=== PATIENT | male | born 1945 | race Caucasian/White ===

== ENCOUNTER 2024-09-27 19:37 | Emergency (ER) | payer OTHER, MEDICARE, SELFPAY ==
[2024-09-27 19:40] VITALS: BP 120/56
[2024-09-27 22:32] VITALS: BMI 26.7
[2024-09-27 22:42] VITALS: BP 155/54
[2024-09-27 23:01] VITALS: BP 168/53
--- NOTE | 2024-09-27 23:02 | ED.MUSCINJ ---
HPI-Injury
<Cindy Salvador NP - Last Filed: 09/29/24 16:39>
General
Chief Complaint: Fall
Source: patient
Exam Limitations: none
Time Seen by Provider: 09/27/24 20:02
Nursing documentation reviewed up to this point in time: agreed with
History of Present Illness-Injury
Is this injury a work related problem?: No
Is pt an associate of [facility]?: No
Initial Injury comments:
Patient states he tripped and fell in his driveway. Denies hitting his head. No LOC. Complains of pain to right clavicle, right hip. Brought to ED by family for eval.
Past History
<Cindy Salvador CAKE MIXER - Last Filed: 09/29/24 16:39>
Past History
ED Past Medical History: GERD and HTN
Review of Systems
<Cindy Salvador CAKE MIXER - Last Filed: 09/29/24 16:39>
Review of Systems
Allergies reviewed?: Yes
All Other Systems: ROS reviewed and negative except as documented in HPI and ROS
Constitutional: Reports no symptoms
EENT: Reports no symptoms
Respiratory: Reports no symptoms
Cardiac: Reports no symptoms
ABD/GI: Reports no symptoms
: Reports no symptoms
Musculoskeletal: Reports joint pain (right clavicle, right hip)
Skin: Reports other (abrasion right elbow)
Neurological: Reports no symptoms
Psychiatric: Reports no symptoms
Musculoskeletal Injury Exam
<Cindy Salvador NP - Last Filed: 09/29/24 16:39>
Musculoskeletal Injury Exam
right clavicle:
Pain with Movement?: Moderate
Tender to palpation?: Moderate
Soft tissue swelling?: Mild
External deformity and angulation?: None
Joint effusion?: None
Contusion?: Moderate
Hematoma-local bleeding into tissue?: Moderate
Strain- Sprain- Tear (Connective tissue injury)?: None
Crepitus with movement?: No
Joint instability?: No
Malalignment/deformity?: No
Range of motion: Limited
Distal skin color and temperature: normal-warm & good color
Capillary Refill: normal
Normal distal neurovascular exam?: Yes
Left Hip:
Pain with Movement?: Mild
Tender to palpation?: Moderate
Soft tissue swelling?: None
External deformity and angulation?: None
Joint effusion?: None
Contusion?: Moderate
Hematoma-local bleeding into tissue?: None
Strain- Sprain- Tear (Connective tissue injury)?: Moderate
Crepitus with movement?: No
Joint instability?: No
Malalignment/deformity?: No
Range of motion: Full
Distal skin color and temperature: normal-warm & good color
Capillary Refill: normal
Normal distal neurovascular exam?: Yes
Phy Exam
<Cindy Salvador NP - Last Filed: 09/29/24 16:39>
General Physical Exam
General Presentation: mild distress
General age: appears stated age
General Skin: warm and dry
General Habitus: normal
General Mental: alert
Cardiovascular Exam
Cardiovascular Exam: regular rate/rhythm
Pulmonary Exam
Pulmonary Exam: lungs clear, no respiratory distress and chest non tender
Gastrointestinal Exam
Gastrointestinal Exam: normal bowel sounds, non tender, soft and non distended
Neurological Exam
Neurological Exam: alert, oriented x3, CN II-XII intact, no motor deficits, no sensory deficits and speech normal
Musculoskeletal Exam
Musculoskeletal Exam: neuro vasc intact and other (no neck or back pain. Reports pain to right medial clavicle. No pain at right shoulder. Medial clavicle fx identified on Cervical CT)
Skin Exam
Skin Exam: normal color, warm/dry and no rash
Psychiatric Exam
Psychiatric Exam: normal mood/affect
Injury Course
<Cindy Salvador NP - Last Filed: 09/29/24 16:39>
Orders/Labs/Results
Orders:
Orders
09/27/24 19:53
CR Elbow - Right Min 3 Views Urgent
Comment:
Reason For Exam: injury from fall
CR Shoulder - Right Min 2 View Urgent
Comment:
Reason For Exam: injury from fall
Hip, Right 2-3 Views [CR Hip - RT w/wo Pel 2-3 Vw*] Urgent
Comment:
Reason For Exam: injury from fall
Include a pelvis x-ray?: No
09/27/24 19:58
CT Head W/o Iv Contrast Urgent
Reason For Exam: head injury
Cervical Spine wo Contrast CT [CT Cervical Spine W/o Iv Contr] Urgent
Comment:
Reason For Exam: head injury
09/27/24 21:57
Clavicle Complete, Right CR [CR Clavicle - Right Complete] Urgent
Comment:
Reason For Exam: fall
09/27/24 22:[address] [CT Pelvis W/o Iv Contrast] Urgent
Comment:
Reason For Exam: fall,pain
09/27/24 23:18
Complete Blood Count/With Diff Urgent
Comprehensive Metabolic Panel Urgent
09/27/24 23:59
Urinalysis Reflex To Culture Urgent
Date Specimen was Collected: 09/27/24
Time Specimen was Collected: 23:57
09/28/24 00:18
HYDROmorphone [Dilaudid] 0.5 mg .ROUTE .STK-MED ONE
Ondansetron Injectable [Zofran] 4 mg .ROUTE .STK-MED ONE
09/28/24 00:20
Ondansetron Injectable [Zofran] 4 mg IV NOW STA
09/28/24 00:21
HYDROmorphone [Dilaudid] 0.5 mg IV NOW STA
Abnormal Lab Results
09/27/24
23:18
WBC 11.6 H 10^3/uL
(4.8-10.8)
Hgb 11.0 L g/dL
(13.0-18.0)
Hct 34.9 L %
(39.0-52.0)
MCV 73.8 L fL
(80.0-94.0)
MCH 23.3 L pg
(27.0-31.0)
MCHC 31.5 L g/dL
(33.0-37.0)
RDW 15.9 H %
(11.5-14.5)
Abs Immat Gran (auto) 0.1 H 10^3/uL
(0-0.05)
Absolute Neuts (auto) 9.2 H 10^3/uL
(1.4-6.5)
Immature Gran % 0.9 H %
(0-0.5)
Neutrophils % 79.1 H %
(42.2-75.2)
Lymphocytes % 13.3 L %
(20.5-51.1)
Glucose 100 H mg/dl
(70-99)
09/27/24 23:18
09/27/24 23:18
<Priya Moyer MD - Last Filed: 09/27/24 23:08>
Orders/Labs/Results
Orders:
Orders
09/27/24 19:53
CR Elbow - Right Min 3 Views Urgent
Comment:
Reason For Exam: injury from fall
CR Shoulder - Right Min 2 View Urgent
Comment:
Reason For Exam: injury from fall
Hip, Right 2-3 Views [CR Hip - RT w/wo Pel 2-3 Vw*] Urgent
Comment:
Reason For Exam: injury from fall
Include a pelvis x-ray?: No
09/27/24 19:58
CT Head W/o Iv Contrast Urgent
Reason For Exam: head injury
Cervical Spine wo Contrast CT [CT Cervical Spine W/o Iv Contr] Urgent
Comment:
Reason For Exam: head injury
09/27/24 21:57
Clavicle Complete, Right CR [CR Clavicle - Right Complete] Urgent
Comment:
Reason For Exam: fall
09/27/24 22:[address] [CT Pelvis W/o Iv Contrast] Urgent
Comment:
Reason For Exam: fall,pain
09/27/24 23:18
Complete Blood Count/With Diff Urgent
Comprehensive Metabolic Panel Urgent
09/27/24 23:59
Urinalysis Reflex To Culture Urgent
Date Specimen was Collected: 09/27/24
Time Specimen was Collected: 23:57
09/28/24 00:18
HYDROmorphone [Dilaudid] 0.5 mg .ROUTE .STK-MED ONE
Ondansetron Injectable [Zofran] 4 mg .ROUTE .STK-MED ONE
09/28/24 00:20
Ondansetron Injectable [Zofran] 4 mg IV NOW STA
09/28/24 00:21
HYDROmorphone [Dilaudid] 0.5 mg IV NOW STA
Abnormal Lab Results
09/27/24
23:18
WBC 11.6 H 10^3/uL
(4.8-10.8)
Hgb 11.0 L g/dL
(13.0-18.0)
Hct 34.9 L %
(39.0-52.0)
MCV 73.8 L fL
(80.0-94.0)
MCH 23.3 L pg
(27.0-31.0)
MCHC 31.5 L g/dL
(33.0-37.0)
RDW 15.9 H %
(11.5-14.5)
Abs Immat Gran (auto) 0.1 H 10^3/uL
(0-0.05)
Absolute Neuts (auto) 9.2 H 10^3/uL
(1.4-6.5)
Immature Gran % 0.9 H %
(0-0.5)
Neutrophils % 79.1 H %
(42.2-75.2)
Lymphocytes % 13.3 L %
(20.5-51.1)
Glucose 100 H mg/dl
(70-99)
09/27/24 23:18
09/27/24 23:18
<Cindy Salvador NP - Last Filed: 09/29/24 16:39>
*Radiology
Radiology exam reviewed: radiology read reviewed
*Pulse Oximetry
Patient hypoxic: no
*Critical Care Note
Total Time (30-74mins, 75-104mins- exclusive of procedures): Not Applicable
<Cindy Salvador NP - Last Filed: 09/29/24 16:39>
Update Note
Update Note:
Patient to ED after fall from standing position in his driveway. He denies hitting his head. Complains of pain to his right medial clavicle and right hip. He has an abrasion to his right shoulder. Head and Cervical CT ordered in triage. No
acute findings on head CT. Cervical CT reveal age indeterminate compression fx C3,4,7. He had no neck pain. Shoulder xray also ordered in triage. No shoulder pain on exam. He does have right medial clavical pain and swelling. Medial clavicle fx
was identified on Cervical CT. Left hip xray concerning for pelvic fx. Sent for pelvis CT which confirms inferior an superior ramus fx and right acetabular fx. Also concern for possible Bladder injury. Urine without hai blood. Due to
numberous pelvic fx and bladder concern on CT, he will be transferred to trauma facility. Family requesting [facility]. I spoke with trauma there and he has been accepted for transfer. Resting comfortably at present.
ED Attending Note
<Cindy Salvador NP - Last Filed: 09/29/24 16:39>
-
Portions of this chart may have been created with voice recognition software.� Occasional wrong word or��sound alike� substitutions may have occurred due to the inherent limitations of voice recognition software.
<Priya Moyer MD - Last Filed: 09/27/24 23:08>
ED Attending Note
Patient seen and examined by attending physician: Yes
I performed the substantive portion of visit, reviewed & personally made and approve the management plan that is documented in note by myself or DAKSHA.: Yes
ED Attending Note:
patient is fully awake and alert. He has no headache. no C spine tenderness on exam. strong pulses in lower and upper extremities
Discharge Plan
Departure
Patient Disposition: Acute Care Hospital
Date of Disposition: 09/27/24
Time of Disposition: 23:29
Patient with high blood pressure during this ER visit?: Yes
Condition: Fair
Covid-19: Not Applicable
Discharge Problem:
Pelvic fracture
Prescriptions:
No Action
atorvastatin 20 mg Tablet
20 mg PO DAILY
galantamine 8 mg Tablet
8 mg PO BID
gabapentin 300 mg Tablet
300 mg PO BID
aspirin 81 mg Capsule
81 mg PO DAILY
CoQ-10
200 mg PO DAILY
Oyster Shell Calcium
500 mg PO DAILY
Vitamin D3
2,000 units PO DAILY
enalapril maleate
10 mg PO DAILY
pantoprazole
40 mg PO DAILY
Referrals:
Prasanth Stanford MD [Family Provider, [facility]]
Hospital Transfer
Other hospital: [facility]
I certify that the patient requires transfer: Yes
Discussed case with accepting physician: SERAFIN
Reason for transfer: higher level of care
Interventions
Interventions:
*Risk Screen - Suicide Last Done: 09/27/24 19:40
*General Assessment Last Done: 09/27/24 19:40
*Neglect/Abuse Screening Last Done: 09/27/24 19:50
*ED- Fall Risk Assessment Last Done: 09/27/24 19:48
*ED COVID-19 Vaccine History Last Done: 09/27/24 19:48
*Nursing Disposition Last Done: 09/28/24 00:59
ED-Musculoskeletal Assessment Last Done: 09/27/24 22:59
ED- Neurological Assessment Last Done: 09/27/24 22:44
ED-Skin Assessment Last Done: 09/27/24 22:44
Discharge Date and Time
Discharge Date/Time: 09/28/24 01:01
Print Language: ROMANSH
[2024-09-27 23:22] VITALS: BP 168/53
[2024-09-27 23:28] LABS: % Basophils 0.3 % (0-2); % Eosinophils 2.1 % (0-6); % Immature Granulocytes 0.9 % (0-0.5); % Lymphocytes 13.3 % (20.5-51.1); % Monocytes 4.3 % (1.7-9.3); % Neutrophils 79.1 % (42.2-75.2); Absolute Eosinophils 0.2 10^3/uL (0-0.7); Absolute Immature Granulocytes 0.1 10^3/uL (0-0.05); Absolute Lymphocytes 1.6 10^3/uL (1.2-3.4); Absolute Monocytes 0.5 10^3/uL (0.1-0.6); Absolute Neutrophils 9.2 10^3/uL (1.4-6.5); Hematocrit 34.9 % (39.0-52.0); Mean Corp Hgb Conc. 31.5 g/dL (33.0-37.0); Mean Corpuscular Hgb 23.3 pg (27.0-31.0); Mean Corpuscular Volume 73.8 fL (80.0-94.0); Mean Platelet Volume 9.1 fL (7.4-10.4); Nucleated Red Blood Cells % 0 % (-); Platelet Count 301 10^3/uL (130-400); Red Blood Cell Count 4.73 10^6/uL (4.70-6.10); Red Cell Dist. Width 15.9 % (11.5-14.5); White Blood Cell Count 11.6 10^3/uL (4.8-10.8)
[2024-09-27 23:41] LABS: ALT (SGPT) 12 U/L (0-50); AST (SGOT) 22 U/L (17-59); Alkaline Phosphatase 63 U/L (38-126); Blood Urea Nitrogen 17 mg/dl (9-20); Calcium 9.7 mg/dl (8.4-10.2); Carbon Dioxide 25 mmol/L (22-30); Chloride 107 mmol/L (98-107); Estimated Creatinine Clearance 48 ml/min; Glucose 100 mg/dl (70-99); Potassium 4.5 mmol/L (3.5-5.1); Sodium 139 mmol/L (135-145); Total Bilirubin 0.9 mg/dl (0.2-1.3); Total Protein 6.7 g/dl (6.3-8.2); eGFR 55.53
[2024-09-28 00:08] LABS: Urine Bilirubin Negative (Negative); Urine Character Clear (Clear); Urine Color Yellow; Urine Glucose Negative (Negative); Urine Ketone Negative (Negative); Urine Leukocyte Negative (Negative); Urine Nitrite Negative (Negative); Urine Occult Blood Negative (Negative); Urine Specific Gravity 1.025 (<1.030); Urine Urobilinogen Negative (Neg - 1+)
[2024-09-28 00:10] LABS: Urine Albumin Trace (Neg - Trace)
[2024-09-28] MEDS: ZOFRAN 4 MG IV (00:21)
[2024-09-28] MEDS: DILAUDID 0.5 MG IV (00:21)
[2024-09-28 00:45] VITALS: BP 152/49
== END 2024-09-28 01:01 | disposition short-term general hospital (02) ==
LOC: EMR 19:37
PROVIDERS: Nurse Practitioner; EMERGENCY PHYSICIAN Emergency Medicine; FAMILY PHYSICIAN Family Medicine
DX: S32.9XXA Fracture of unspecified parts of lumbosacral spine and pelvis, initial encounter for closed fracture (principal); S70.02XA Contusion of left hip, initial encounter; S40.011A Contusion of right shoulder, initial encounter; S50.311A Abrasion of right elbow, initial encounter; W01.0XXA Fall on same level from slipping, tripping and stumbling without subsequent striking against object, initial encounter; Y92.008 Other place in unspecified non-institutional (private) residence as the place of occurrence of the external cause; I10 Essential (primary) hypertension; K21.9 Gastro-esophageal reflux disease without esophagitis; F03.90 Unspecified dementia, unspecified severity, without behavioral disturbance, psychotic disturbance, mood disturbance, and anxiety; J44.9 Chronic obstructive pulmonary disease, unspecified; Z79.82 Long term (current) use of aspirin
CPT/HCPCS: 99285; 96374; 96375; 70450; 72125; 72192; 73000; 73030; 73080; 73502; 80053; 81003; 85025

== ENCOUNTER → 2024-10-03 10:51 | Outpatient (REF) | payer OTHER, SELFPAY ==
[2024-10-03 11:41] LABS: % Basophils 0.7 % (0-2); % Eosinophils 5.3 % (0-6); % Immature Granulocytes 0.5 % (0-0.5); % Lymphocytes 18.7 % (20.5-51.1); % Monocytes 8.5 % (1.7-9.3); % Neutrophils 66.3 % (42.2-75.2); Absolute Basophils 0.1 10^3/uL (0-0.2); Absolute Eosinophils 0.4 10^3/uL (0-0.7); Absolute Lymphocytes 1.6 10^3/uL (1.2-3.4); Absolute Monocytes 0.7 10^3/uL (0.1-0.6); Absolute Neutrophils 5.5 10^3/uL (1.4-6.5); Hemoglobin 9.4 g/dL (13.0-18.0); Mean Corp Hgb Conc. 31.3 g/dL (33.0-37.0); Mean Corpuscular Hgb 23.4 pg (27.0-31.0); Mean Corpuscular Volume 74.6 fL (80.0-94.0); Mean Platelet Volume 9.6 fL (7.4-10.4); Nucleated Red Blood Cells % 0 % (-); Platelet Count 327 10^3/uL (130-400); Red Blood Cell Count 4.02 10^6/uL (4.70-6.10); Red Cell Dist. Width 16.8 % (11.5-14.5); White Blood Cell Count 8.3 10^3/uL (4.8-10.8)
[2024-10-03 11:44] LABS: Blood Urea Nitrogen 18 mg/dl (9-20); Calcium 9.2 mg/dl (8.4-10.2); Carbon Dioxide 28 mmol/L (22-30); Chloride 109 mmol/L (98-107); Glucose 89 mg/dl (70-99); Potassium 4.6 mmol/L (3.5-5.1); Sodium 140 mmol/L (135-145); eGFR > 60.00
== END ==
LOC: CLAB 10:51
PROVIDERS: ATTENDING PHYSICIAN Family Medicine
DX: N32.0 Bladder-neck obstruction (principal); S42.021D Displaced fracture of shaft of right clavicle, subsequent encounter for fracture with routine healing; S22.42XD Multiple fractures of ribs, left side, subsequent encounter for fracture with routine healing; S32.9XXD Fracture of unspecified parts of lumbosacral spine and pelvis, subsequent encounter for fracture with routine healing; K57.30 Diverticulosis of large intestine without perforation or abscess without bleeding; I25.10 Atherosclerotic heart disease of native coronary artery without angina pectoris; E78.2 Mixed hyperlipidemia; I10 Essential (primary) hypertension
CPT/HCPCS: 36415; 80048; 85025

== ENCOUNTER 2024-12-16 06:17 | Day surgery (SDC) | payer OTHER, SELFPAY | END 2024-12-16 15:07 | disposition home or self-care (01) | LOC: GI 06:17 | PROVIDERS: ATTENDING PHYSICIAN Surgery | DX: Z12.11 Encounter for screening for malignant neoplasm of colon (principal); K57.30 Diverticulosis of large intestine without perforation or abscess without bleeding; K56.690 Other partial intestinal obstruction; D49.0 Neoplasm of unspecified behavior of digestive system; C18.0 Malignant neoplasm of cecum; D12.5 Benign neoplasm of sigmoid colon; D12.3 Benign neoplasm of transverse colon; D12.2 Benign neoplasm of ascending colon | CPT/HCPCS: 45385; 45381; 45380; 88305; 88342 ==

== ENCOUNTER → 2024-12-24 12:28 | Outpatient (REF) | payer OTHER, SELFPAY | LOC: RAD 12:28 | PROVIDERS: ATTENDING PHYSICIAN Surgery; FAMILY PHYSICIAN Family Medicine | DX: K63.89 Other specified diseases of intestine (principal) | CPT/HCPCS: 71260; 74177; Q9967 ==

== ENCOUNTER 2024-12-25 16:31 | Emergency (ER) | payer OTHER, SELFPAY ==
[2024-12-25 16:42] VITALS: BP 91/45
[2024-12-25 17:10] LABS: Hematocrit 34.1 % (39.0-52.0); Hemoglobin 10.6 g/dL (13.0-18.0); Mean Corp Hgb Conc. 31.1 g/dL (33.0-37.0); Mean Corpuscular Volume 71.8 fL (80.0-94.0); Nucleated Red Blood Cells % 0 % (-); Platelet Count 335 10^3/uL (130-400); Red Cell Dist. Width 17.7 % (11.5-14.5)
[2024-12-25 17:16] LABS: ALT (SGPT) 11 U/L (0-50); AST (SGOT) 18 U/L (17-59); Albumin 3.7 g/dl (3.5-5.0); Alkaline Phosphatase 76 U/L (38-126); Blood Urea Nitrogen 12 mg/dl (9-20); Calcium 9.7 mg/dl (8.4-10.2); Carbon Dioxide 25 mmol/L (22-30); Chloride 105 mmol/L (98-107); Glucose 130 mg/dl (70-99); Potassium 4.9 mmol/L (3.5-5.1); Sodium 135 mmol/L (135-145); Total Protein 6.1 g/dl (6.3-8.2); eGFR 43.29
[2024-12-25 18:27] VITALS: BP 129/76
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
[2024-12-25 19:25] VITALS: BP 131/53
[2024-12-25 20:00] VITALS: BP 137/61
[2024-12-25 20:09] LABS: Urine Character Clear (Clear)
[2024-12-25 20:33] LABS: Urine Red Blood Cell 0-2 /HPF (0-2); Urine Squamous Cell 0-2 /LPF (Few)
== END 2024-12-25 20:42 | disposition home or self-care (01) ==
LOC: EMR 16:31
PROVIDERS: Emergency Medicine; EMERGENCY PHYSICIAN Emergency Medicine; FAMILY PHYSICIAN Family Medicine
DX: Z04.3 Encounter for examination and observation following other accident (principal); W17.2XXA Fall into hole, initial encounter; F03.90 Unspecified dementia, unspecified severity, without behavioral disturbance, psychotic disturbance, mood disturbance, and anxiety; I10 Essential (primary) hypertension; J44.9 Chronic obstructive pulmonary disease, unspecified; K21.9 Gastro-esophageal reflux disease without esophagitis
CPT/HCPCS: 99284; 70450; 71046; 72125; 72170; 80053; 81003; 81015; 85025; 87086

== ENCOUNTER → 2025-01-20 17:33 | Outpatient (REF) | payer OTHER, SELFPAY | LOC: MRI 17:33 | PROVIDERS: ATTENDING PHYSICIAN Surgery; FAMILY PHYSICIAN Family Medicine | DX: C18.0 Malignant neoplasm of cecum (principal); R93.2 Abnormal findings on diagnostic imaging of liver and biliary tract | CPT/HCPCS: 74183; A9575 ==

== ENCOUNTER 2025-02-04 06:01 | Inpatient (IN) | payer OTHER, SELFPAY ==
[2025-01-26 11:53] LABS: Hematocrit 35.2 % (39.0-52.0); Hemoglobin 11.0 g/dL (13.0-18.0); Mean Corp Hgb Conc. 31.3 g/dL (33.0-37.0); Mean Corpuscular Volume 71.5 fL (80.0-94.0); Platelet Count 362 10^3/uL (130-400); Red Cell Dist. Width 18.0 % (11.5-14.5)
[2025-01-26 12:03] LABS: INR 1.07; PT 14.2 Sec (11.4-14.6)
[2025-01-26 12:04] LABS: APTT 32.1 Sec (23.4-35.0)
[2025-01-26 12:11] LABS: Glycohemoglobin (HgbA1c) 5.5 % (4.0-5.6)
[2025-01-26 13:48] LABS: ALT (SGPT) < 10 U/L (0-50); AST (SGOT) 17 U/L (17-59); Albumin 3.8 g/dl (3.5-5.0); Alkaline Phosphatase 80 U/L (38-126); Blood Urea Nitrogen 13 mg/dl (9-20); Calcium 9.2 mg/dl (8.4-10.2); Carbon Dioxide 29 mmol/L (22-30); Chloride 104 mmol/L (98-107); Glucose 79 mg/dl (70-99); Potassium 4.7 mmol/L (3.5-5.1); Sodium 137 mmol/L (135-145); Total Protein 6.3 g/dl (6.3-8.2); eGFR 55.53
[2025-01-26 13:49] VITALS: BMI 23.0
[2025-01-26 14:17] LABS: CEA 1.26 ng/ml
[2025-02-04] VITALS (17 sets, daily range): BP systolic 119–192; BP diastolic 51–85; BMI 23.0
[2025-02-04] MEDS: HEPARIN 5000 UNITS SC (07:03)
[2025-02-04] MEDS: NORMOSOL-R/PLASMALYTE-A 1000 IV ×2 (07:03→14:46)
--- NOTE | 2025-02-04 11:55 | W.OR.COLCA ---
Colon Cancer Post Op Note
Immediate Post Op
Primary Surgeon: Teja Patel MD
Assistants: JOJO Alaniz, Marti Cabrera, MAGGIE, PENS AND PENCILS DIPPER, NIKKIE Copeland
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
Post-op Diagnosis: Cecal cancer, with liver metastasis
Procedure Performed: Robotic right colectomy with intracorporeal isoperistaltic anastomosis, wedge resection of liver lesion with frozen section
Anesthesia Type: GET
Specimen / Cultures: Liver lesion with metastatic adenocarcinoma on frozen section
Right colon
Portion of omentum
Estimated Blood Loss: 30cc
Complications: None
Operative Findings: Bulky tumor of the cecum, enlarged appendix and adherent terminal ileum
1 cm lesion in the right hepatic lobe
Patient's family updated in the waiting room
Colon Resection
Colon Resection
Operation performed with curative intent: No
Tumor Location: Cecum
Right Hemicolectomy: Ileocolic and Right Colic
Other: Wedge resection of right hepatic liver lesion
--- NOTE | 2025-02-04 16:00 | PTCARENOTE ---
Pt arrived to [facility] s/p Robotic Right colectomy. 5 lap sites GEODUCK DIVER with glue. Craig with yellow output to be removed POD #2. Knee high scds/teds on pt. Bed alarm activated. Admission questions answered. Bed locked and lowest position. Care ongoing.
[2025-02-04] MEDS: TYLENOL 650 MG PO ×2 (16:58→19:45)
[2025-02-04] MEDS: RAZADYNE 8 MG PO (17:04)
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
[2025-02-04] MEDS: NEURONTIN 300 MG PO (19:45)
[2025-02-04] MEDS: APRESOLINE 5 MG IV (19:48)
[2025-02-05] MEDS: TYLENOL PO (00:35)
[2025-02-05 03:08] VITALS: BP 158/61
[2025-02-05] MEDS: TYLENOL 650 MG PO ×6 (03:36→23:18)
[2025-02-05] MEDS: NORMOSOL-R/PLASMALYTE-A 1000 IV ×2 (03:36→18:17)
[2025-02-05 06:00] VITALS: BMI 22.0
[2025-02-05 07:45] VITALS: BP 160/78
[2025-02-05 07:48] LABS: Blood Urea Nitrogen 15 mg/dl (9-20); Calcium 8.7 mg/dl (8.4-10.2); Carbon Dioxide 24 mmol/L (22-30); Chloride 108 mmol/L (98-107); Estimated Creatinine Clearance 50 ml/min; Glucose 98 mg/dl (70-99); Potassium 4.2 mmol/L (3.5-5.1); Sodium 138 mmol/L (135-145); eGFR > 60.00
[2025-02-05 08:14] LABS: Hematocrit 30.5 % (39.0-52.0); Hemoglobin 9.7 g/dL (13.0-18.0); Mean Corp Hgb Conc. 31.8 g/dL (33.0-37.0); Mean Corpuscular Volume 71.3 fL (80.0-94.0); Nucleated Red Blood Cells % 0 % (-); Platelet Count 279 10^3/uL (130-400); Red Cell Dist. Width 19.1 % (11.5-14.5)
[2025-02-05] MEDS: NEURONTIN 300 MG PO ×2 (08:40→20:44)
[2025-02-05] MEDS: ASPIR LOW (ENTERIC COATED) 81 MG PO (08:40)
[2025-02-05] MEDS: RAZADYNE 8 MG PO ×2 (08:42→16:16)
[2025-02-05] MEDS: VASOTEC 10 MG PO (08:42)
[2025-02-05] MEDS: LIPITOR 20 MG PO (08:42)
--- NOTE | 2025-02-05 10:36 | W.PN.CRS1 ---
Today's Communication / Plan
-
fulls if passes flatus later
lovenox
OOB
await path
Assessment/Plan
-
POD#1 Robotic right colectomy with intracorporeal isoperistaltic anastomosis, wedge resection of liver lesion with frozen section
WBC: 11.6, RBC 9.7 (11.0)
-Continue clears. Okay to advance to fulls when has flatus.
-OOB with PT/OT
-OR pathology pending
-Lovenox to start for dvt prophylaxis. TEDS/SCDS in place.
-No eliquis upon discharge (cancer) due to fall risk.
-Pain control: tylenol/toradol standing, Diluadid PRN.
-D/C masterson
-DC IVFs when tolerating po
-Appreciate hospitalist
Subjective Data
Procedure
02/04/2025- Robotic right colectomy with intracorporeal isoperistaltic anastomosis, wedge resection of liver lesion with frozen section
Subjective Data
Date of Service: February 05, 2025
Patient states he has no nausea or vomiting. He had some pain last night. No flatus yet. He is hungry.
Objective Data
-
Vital Signs
Temp Pulse Resp BP Pulse Ox
97.9 F 68 18 145/54 95
02/05/25 07:45 02/05/25 08:42 02/05/25 07:45 02/05/25 08:42 02/05/25 07:45
Intake & Output
02/04/25 02/05/25 02/06/25
06:59 06:59 06:59
Intake Total 2620 / 2620 120 / 120
Output Total 920 / 920
Balance 1700 / 1700 120 / 120
Intake:
Oral fluids 1200 / 1200 120 / 120
IV fluids (Total) 1420 / 1420
Normosal 300 / 300
Output:
Urine, [place] 820 / 820
Urine, Voided 100 / 100
Lab Results
02/05/25 05:58
02/05/25 05:58
Physical Exam
-
General: No Acute Distress and AOx3
Abdomen: Soft, Non Distended and Non Tender
Skin: Warm and Dry
Incision: Clear, Dry, Intact
[2025-02-05 11:10] VITALS: BP 141/65
[2025-02-05 12:12] VITALS: BP 145/61
[2025-02-05 15:20] VITALS: BP 117/58
--- NOTE | 2025-02-05 16:20 | CM ---
Met with patient at bedside; he gave permission to speak with son, Cody, via phone
Pharmacy verified: [facility] @ [address]
Patient lives with son and [id number] in an in-law suite attached to his son's home; he enters via the backdoor; 1 step to enter the suite and another to enter his bathroom; bath has shower stall
PLOF: independent w/ personal care, family provides assistance if needed; son reported he occasionally ambulates w/ a cane;
SNF stay @ [facility] 2023; Home Health services with [facility] 2024
PT recommends home health at disposition; Son is agreeable; agency options offered; preference is [facility]; referral sent via [facility] [employer]
Plan: Discharge to home when medically stable with home health services
--- NOTE | 2025-02-05 16:36 | W.PN.HOSP.TC ---
Today's Communication/Plan
-
Assessment / Plan
Assessment / Plan
General: No Apparent Distress, Comfortable and Conversant
HEENT: NormoCephalic, Moist mucous membranes, Atraumatic
Respiratory: Clear and Non Labored Respirations
Cardiac: S1/S2 and Regular Rhythm; No Rub or Gallop
GI: Soft, mild TTP, Non Distended and Normal Bowel Sounds, surgical port scars CDI
Musculoskeletal: No Edema, no deformity
: Craig in place draining clear yellow urine
Skin: Warm and dry
Neuro: Awake, Alert, Nonfocal/grossly intact
Psych: Calm and cooperative
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
- On Levaquin/Flagyl
- IV fluids
- Clear liquid diet as per colorectal surgery, awaiting return of bowel function
- Patient with Craig catheter
- Oxycodone, gabapentin, Dilaudid for pain
# Hypertension after surgery secondary to pain/missed enalapril dose
- Blood pressure currently well-controlled
- Continue home enalapril
- As needed hydralazine
Mild cognitive impairment/dementia
- Continue galantamine
CAD
- Continue aspirin and statin
GERD
- Continue Protonix
Hyperlipidemia
Full code
DVT prophylaxis-SCDs
Clear liquid diet
Anticipated Discharge: 24 - 48 hours
Subjective/Interval History
-
Date of Service: February 05, 2025
Patient was seen and examined at bedside this morning. Relatively comfortable despite postoperative abdominal pain.
Objective Data
-
Labs:
Laboratory Results
02/05/25
05:58
WBC 11.6 H
Hgb 9.7 L
Hct 30.5 L
Plt Count 279
Sodium 138
Potassium 4.2
Chloride 108 H
Carbon Dioxide 24
BUN 15
Creatinine 1.2
Glucose 98
Calcium 8.7
Vital Signs:
Vital Signs
Temp Pulse Resp BP Pulse Ox
97.9 F 60 18 117/58 96
02/05/25 15:20 02/05/25 15:20 02/05/25 15:20 02/05/25 15:20 02/05/25 15:20
I&O
02/04/25 02/05/25 02/06/25
06:59 06:59 06:59
Intake Total 2620 / 2620 120 / 120
Output Total 920 / 920 300 / 300
Balance 1700 / 1700 -180 / -180
Review of Systems
-
History Source: Patient
All other systems: Reviewed and negative
Physical Exam
-
General: No Apparent Distress
[2025-02-05] MEDS: LOVENOX 40 MG SC (17:41)
[2025-02-05 19:26] LABS: Hepatitis C Antibody Negative (Negative)
[2025-02-05 23:18] VITALS: BP 142/51
[2025-02-06] MEDS: TYLENOL 650 MG PO ×5 (04:27→23:10)
[2025-02-06 06:00] VITALS: BMI 22.0
[2025-02-06 07:38] LABS: Hematocrit 28.1 % (39.0-52.0); Hemoglobin 8.5 g/dL (13.0-18.0); Mean Corp Hgb Conc. 30.2 g/dL (33.0-37.0); Mean Corpuscular Volume 74.1 fL (80.0-94.0); Nucleated Red Blood Cells % 0 % (-); Platelet Count 247 10^3/uL (130-400); Red Cell Dist. Width 19.9 % (11.5-14.5)
[2025-02-06 08:00] VITALS: BP 130/43
[2025-02-06 08:03] LABS: Blood Urea Nitrogen 15 mg/dl (9-20); Calcium 8.3 mg/dl (8.4-10.2); Carbon Dioxide 29 mmol/L (22-30); Chloride 106 mmol/L (98-107); Estimated Creatinine Clearance 54 ml/min; Glucose 81 mg/dl (70-99); Potassium 3.8 mmol/L (3.5-5.1); Sodium 137 mmol/L (135-145); eGFR > 60.00
[2025-02-06] MEDS: ASPIR LOW (ENTERIC COATED) 81 MG PO (08:57)
[2025-02-06] MEDS: NEURONTIN 300 MG PO ×2 (08:57→19:38)
[2025-02-06] MEDS: VASOTEC 10 MG PO (08:57)
[2025-02-06] MEDS: RAZADYNE 8 MG PO ×2 (08:58→17:18)
[2025-02-06] MEDS: LIPITOR 20 MG PO (08:58)
--- NOTE | 2025-02-06 09:10 | VNURNOTE ---
Chart reviewed. Noted to contact son Cody. Home Health Liaison spoke with patient's son to discuss [facility] nurse/therapy, visits, schedule and homebound status. Son is agreeable and understands that visits at home will be 2-3 x per week to assess
and teach medical management. He is familiar with [facility] services and was happy with services in the past. He is aware that [facility] will contact them for start of care in 1-2 days after discharge from . Provided contact number for [facility].
[facility] referral completed in [facility].
--- NOTE | 2025-02-06 09:47 | W.PN.CRS1 ---
Today's Communication / Plan
-
fulls
maintain ivfs today
OOB with PT/OT
Assessment/Plan
-
POD#2 Robotic right colectomy with intracorporeal isoperistaltic anastomosis, wedge resection of liver lesion with frozen section
WBC: 7.9 (11.6), RBC 8.5 (9.7, 11.0), Creatinine 1.1 (1.2, 1.3)
-Advance diet to fulls
-Maintain IVFs today due to low urine output
-OOB with PT/OT
-Hgb drifted to 8.5. Will monitor. Likely due to dilutional anemia with some blood loss from surgery (minimal).
-OR pathology pending
-Lovenox for dvt prophylaxis. TEDS/SCDS in place.
-No Eliquis upon discharge (cancer) due to fall risk.
-Pain control: tylenol/toradol standing, Diluadid PRN.
-Appreciate hospitalist
Subjective Data
Procedure
02/04/2025- Robotic right colectomy with intracorporeal isoperistaltic anastomosis, wedge resection of liver lesion with frozen section
Subjective Data
Date of Service: February 06, 2025
Patient states he is not sure if he is hungry. Denies nausea or vomiting. Has no other complaints.
Objective Data
-
Vital Signs
Temp Pulse Resp BP Pulse Ox
98.5 F 61 20 130/43 94
02/06/25 08:00 02/06/25 08:00 02/06/25 08:00 02/06/25 08:00 02/06/25 08:00
Intake & Output
02/05/25 02/06/25 02/07/25
06:59 06:59 06:59
Intake Total 2620 / 2620 2040 / 2040
Output Total 920 / 920 600 / 600
Balance 1700 / 1700 1440 / 1440
Intake:
Oral fluids 1200 / 1200 1080 / 1080
IV fluids (Total) 1420 / 1420 240 / 240
Normosal 300 / 300
IV piggybacks 720 / 720
Output:
Urine, Craig 820 / 820 300 / 300
Urine, Voided 100 / 100 300 / 300
Lab Results
02/06/25 06:59
02/06/25 06:59
Physical Exam
-
General: No Acute Distress and AOx3
Abdomen: Soft, Non Distended and Non Tender
Skin: Warm and Dry
[2025-02-06] MEDS: NORMOSOL-R/PLASMALYTE-A 1000 IV (11:14)
[2025-02-06] MEDS: TYLENOL PO (12:12)
--- NOTE | 2025-02-06 12:32 | W.PN.HOSP.TC ---
Today's Communication/Plan
-
Assessment / Plan
Assessment / Plan
General: No Apparent Distress, Comfortable and Conversant
HEENT: NormoCephalic, Moist mucous membranes, Atraumatic
Respiratory: Clear and Non Labored Respirations
Cardiac: S1/S2 and Regular Rhythm; No Rub or Gallop
GI: Soft, mild TTP, Non Distended and Normal Bowel Sounds, surgical port scars CDI
Musculoskeletal: No Edema, no deformity
: No Craig
Skin: Warm and dry
Neuro: Awake, Alert, Nonfocal/grossly intact
Psych: Calm and cooperative
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
- On Levaquin/Flagyl
- IV fluids
- Full liquid diet as per colorectal surgery, awaiting return of bowel function
- Patient with Craig catheter
- Oxycodone, gabapentin, Dilaudid for pain
# Hypertension:
- Chronic
- Blood pressure currently well-controlled
- Continue home enalapril
- As needed hydralazine
Microcytic anemia:
- Hemoglobin drifted down postoperatively, likely somewhat dilutional with IV fluids
- Monitor, currently well above transfusion threshold
Mild cognitive impairment/dementia
- Continue galantamine
CAD
- Continue aspirin and statin
GERD
- Continue Protonix
Hyperlipidemia
Full code
DVT prophylaxis-SCDs
Full L liquid diet
Anticipated Discharge: 24 - 48 hours
Subjective/Interval History
-
Date of Service: February 06, 2025
Patient was seen and examined at bedside this morning. Comfortable. Hemodynamically stable.
Objective Data
-
Labs:
Laboratory Results
02/06/25
06:59
WBC 7.9
Hgb 8.5 L
Hct 28.1 L
Plt Count 247
Sodium 137
Potassium 3.8
Chloride 106
Carbon Dioxide 29
BUN 15
Creatinine 1.1
Glucose 81
Calcium 8.3 L
Vital Signs:
Vital Signs
Temp Pulse Resp BP Pulse Ox
98.5 F 61 20 130/43 94
02/06/25 08:00 02/06/25 08:00 02/06/25 08:00 02/06/25 08:00 02/06/25 08:00
I&O
02/05/25 02/06/25 02/07/25
06:59 06:59 06:59
Intake Total 2620 / 2620 2040 / 2040
Output Total 920 / 920 600 / 600
Balance 1700 / 1700 1440 / 1440
Review of Systems
-
History Source: Patient
All other systems: Reviewed and negative
Physical Exam
-
General: No Apparent Distress
--- NOTE | 2025-02-06 12:50 | CM ---
CM following re: discharge planning.
Reviewed pt's chart, met with pt.
Pt is POD#2 Robotic right colectomy with intracorporeal isoperistaltic anastomosis, wedge resection of liver lesion with frozen section. Continue supportive care.
PT and OT evaluation noted - home PT/OT recommended.
[facility] liaison following.
Please fax discharge instructions to [facility] [phone]
D/C plan: home with [facility] and family support.
CM will follow with discharge plan updates as needed./
[2025-02-06 15:30] VITALS: BP 132/55
[2025-02-06] MEDS: LOVENOX 40 MG SC (17:19)
[2025-02-06 23:27] VITALS: BP 154/60
[2025-02-07] MEDS: TYLENOL 650 MG PO ×5 (03:34→19:49)
[2025-02-07] MEDS: NORMOSOL-R/PLASMALYTE-A 1000 IV (03:35)
[2025-02-07 05:22] VITALS: BMI 22.2
[2025-02-07 07:31] LABS: Hematocrit 27.7 % (39.0-52.0); Hemoglobin 8.7 g/dL (13.0-18.0); Mean Corp Hgb Conc. 31.4 g/dL (33.0-37.0); Mean Corpuscular Volume 72.9 fL (80.0-94.0); Nucleated Red Blood Cells % 0 % (-); Platelet Count 271 10^3/uL (130-400); Red Cell Dist. Width 19.5 % (11.5-14.5)
[2025-02-07] MEDS: LIPITOR 20 MG PO (07:55)
[2025-02-07] MEDS: NEURONTIN 300 MG PO ×2 (07:55→19:49)
[2025-02-07] MEDS: ASPIR LOW (ENTERIC COATED) 81 MG PO (07:55)
[2025-02-07] MEDS: RAZADYNE 8 MG PO ×2 (07:55→17:01)
[2025-02-07] MEDS: VASOTEC 10 MG PO (07:56)
[2025-02-07 07:58] LABS: Blood Urea Nitrogen 12 mg/dl (9-20); Calcium 8.1 mg/dl (8.4-10.2); Carbon Dioxide 30 mmol/L (22-30); Chloride 104 mmol/L (98-107); Estimated Creatinine Clearance 60 ml/min; Glucose 78 mg/dl (70-99); Potassium 3.8 mmol/L (3.5-5.1); Sodium 136 mmol/L (135-145); eGFR > 60.00
[2025-02-07 08:00] VITALS: BP 167/60
--- NOTE | 2025-02-07 10:03 | W.PN.CRS1 ---
Addendum entered and electronically signed by Harris Montejo MD 02/07/25 10:08:
I saw and examined the patient independently.
The Epic Application Coordinator's note was reviewed and I agree with the note, assessment and plan except where noted below.
Comment: 79-year-old male postoperative day 3 from a robotic right colectomy. Doing well, expected postoperative course.
Plan as below.
Original Note:
Today's Communication / Plan
-
low residue
d/c ivfs
likely home tomorrow
Assessment/Plan
-
POD#3 Robotic right colectomy with intracorporeal isoperistaltic anastomosis, wedge resection of liver lesion with frozen section
WBC: 6.2 (7.9, 11.6), RBC 8.7 (8.9, 9.7, 11.0), Creatinine 1.0, (1.1, 1.2, 1.3)
-Advance diet to low residue
-DC IVFs (urinating throughout the night per nursing)
-OOB with PT/OT
-OR pathology pending
-Lovenox for dvt prophylaxis. TEDS/SCDS in place.
-No Eliquis upon discharge (cancer) due to fall risk.
-Pain control: tylenol/toradol standing, Diluadid PRN.
-Appreciate hospitalist
-Anticipate discharge tomorrow (home with [facility])
Subjective Data
Procedure
02/04/2025- Robotic right colectomy with intracorporeal isoperistaltic anastomosis, wedge resection of liver lesion with frozen section
Subjective Data
Date of Service: February 07, 2025
Patient states his pain is controlled. Denies nausea or vomiting. He has gas and bowel movements daily. No complaints.
Objective Data
-
Vital Signs
Temp Pulse Resp BP Pulse Ox
97.9 F 61 14 167/60 98
02/07/25 08:00 02/07/25 08:00 02/07/25 08:00 02/07/25 08:00 02/07/25 08:00
Intake & Output
02/06/25 02/07/25 02/08/25
06:59 06:59 06:59
Intake Total 2040 / 2040 2040 / 2040 480 / 480
Output Total 600 / 600 100 / 100
Balance 1440 / 1440 1940 / 1940 480 / 480
Intake:
Oral fluids 1080 / 1080 1440 / 1440 480 / 480
IV fluids (Total) 240 / 240 600 / 600
IV piggybacks 720 / 720
Output:
Urine, Craig 300 / 300
Urine, Voided 300 / 300 100 / 100
Other:
How many times incontinent 2
MODERATE amount urine
Number of approximated MODERATE 3 1
amounts of urine
Lab Results
02/07/25 06:12
02/07/25 06:12
Physical Exam
-
General: No Acute Distress and AOx3
Abdomen: Soft, Non Distended and Non Tender
Skin: Warm and Dry
Incision: Clear, Dry, Intact
--- NOTE | 2025-02-07 11:08 | W.PN.HOSP.TC ---
Today's Communication/Plan
-
Assessment / Plan
Assessment / Plan
General: No Apparent Distress, Comfortable and Conversant
HEENT: NormoCephalic, Moist mucous membranes, Atraumatic
Respiratory: Clear and Non Labored Respirations
Cardiac: S1/S2 and Regular Rhythm; No Rub or Gallop
GI: Soft, mild TTP, Non Distended and Normal Bowel Sounds, surgical port scars CDI
Musculoskeletal: No Edema, no deformity
: No Craig
Skin: Warm and dry
Neuro: Awake, Alert, Nonfocal/grossly intact
Psych: Calm and cooperative
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
- Completed antibiotics
- Diet advanced to low residue
- Craig catheter discontinued
- Oxycodone, gabapentin, Dilaudid for pain
# Hypertension:
- Chronic
- Blood pressure currently well-controlled
- Continue home enalapril
- As needed hydralazine
Microcytic anemia:
- Hemoglobin drifted down postoperatively, likely somewhat dilutional with IV fluids
- Stable
- Monitor, currently well above transfusion threshold
Mild cognitive impairment/dementia
- Continue galantamine
CAD
- Continue aspirin and statin
GERD
- Currently asymptomatic
- Could add PPI or H2 saniya if needed
Hyperlipidemia
- Continue atorvastatin 20 mg daily
Full code
DVT prophylaxis-Lovenox
Low residue diet
Anticipated Discharge: 24 - 48 hours
Subjective/Interval History
-
Date of Service: February 07, 2025
Patient was seen and examined at bedside this morning. Comfortable, no complaints.
Objective Data
-
Labs:
Laboratory Results
02/07/25
06:12
WBC 6.2
Hgb 8.7 L
Hct 27.7 L
Plt Count 271
Sodium 136
Potassium 3.8
Chloride 104
Carbon Dioxide 30
BUN 12
Creatinine 1.0
Glucose 78
Calcium 8.1 L
Vital Signs:
Vital Signs
Temp Pulse Resp BP Pulse Ox
97.9 F 61 14 167/60 98
02/07/25 08:00 02/07/25 08:00 02/07/25 08:00 02/07/25 08:00 02/07/25 08:00
I&O
02/06/25 02/07/25 02/08/25
06:59 06:59 06:59
Intake Total 2039 / 0 204 / 2039 480 / 480
Output Total 600 / 600 100 / 100
Balance 1440 / 1440 1940 / 1940 480 / 480
Review of Systems
-
History Source: Patient
All other systems: Reviewed and negative
Physical Exam
-
General: No Apparent Distress
[2025-02-07 15:45] VITALS: BP 158/62
[2025-02-07] MEDS: LOVENOX 40 MG SC (17:01)
[2025-02-07 23:31] VITALS: BP 157/51
[2025-02-08] MEDS: TYLENOL PO ×2 (01:24→04:51)
[2025-02-08 06:00] VITALS: BMI 22.1
[2025-02-08 07:46] VITALS: BP 185/68
[2025-02-08] MEDS: LIPITOR 20 MG PO (08:02)
[2025-02-08] MEDS: VASOTEC 10 MG PO (08:02)
[2025-02-08] MEDS: RAZADYNE 8 MG PO (08:03)
[2025-02-08] MEDS: ASPIR LOW (ENTERIC COATED) 81 MG PO (08:03)
[2025-02-08] MEDS: NEURONTIN 300 MG PO (08:03)
[2025-02-08] MEDS: TYLENOL 650 MG PO (08:03)
[2025-02-08 08:32] VITALS: BP 173/64
--- NOTE | 2025-02-08 09:13 | W.PN.CRS1 ---
Today's Communication / Plan
-
Dispo planning
Assessment/Plan
-
79 yo male with a h/o dementia and cecal adenocarcinoma with liver mets now POD#4 Robotic right colectomy with intracorporeal isoperistaltic anastomosis, wedge resection of liver lesion with frozen section
[facility]
Doing well post operatively
Tolerating diet, good bowel recovery
Plan
-Continue low residue diet
-OOB. Appreciate PT/OT
-OR pathology pending
-Lovenox for dvt prophylaxis. TEDS/SCDS in place.
-No Eliquis upon discharge (cancer) due to fall risk.
-Pain control: tylenol/toradol standing, oxycodonee PRN.
-D/W hospitalist, ok for d/c from their standpoint
D/C to home with [facility]
Subjective Data
Procedure
02/04/2025- Robotic right colectomy with intracorporeal isoperistaltic anastomosis, wedge resection of liver lesion with frozen section
Subjective Data
Date of Service: February 08, 2025
Pt seen and examined at bedside with Dr Montejo. Denies acute complaints, notes he would like to see his children.
Objective Data
-
Vital Signs
Temp Pulse Resp BP Pulse Ox
98.1 F 62 16 173/64 96
02/08/25 07:46 02/08/25 08:02 02/08/25 07:46 02/08/25 08:32 02/08/25 07:46
Intake & Output
02/07/25 02/08/25 02/09/25
06:59 06:59 06:59
Intake Total 2039 / 2039 480 / 480
Output Total 100 / 100 200 / 200
Balance 1939 / 1939 280 / 280
Intake:
Oral fluids 1440 / 1440 480 / 480
IV fluids (Total) 600 / 600
Output:
Urine, Voided 100 / 100 200 / 200
Other:
How many times incontinent 2
MODERATE amount urine
Number of approximated SMALL 1
amounts of urine
Number of approximated MODERATE 3 1
amounts of urine
Lab Results
02/07/25 06:12
02/07/25 06:12
Physical Exam
-
General: No Acute Distress and AOx3
Abdomen: Soft, Non Distended and Non Tender
Skin: Warm and Dry
Incision: Clear, Dry, Intact
[2025-02-08 09:38] VITALS: BP 155/61
[2025-02-08 11:25] VITALS: BP 149/60
--- NOTE | 2025-02-08 11:33 | CM ---
CM following re: discharge planning.
Reviewed pt's chart, met with pt.
Pt is POD#4 Robotic right colectomy with intracorporeal isoperistaltic anastomosis, wedge resection of liver lesion with frozen section. Continue supportive care.
PT and OT evaluation noted - home PT/OT recommended.
[facility] liaison following.
Discharge order noted. Pt is aware, expressed his agreement and he stated his son will transport home.
IMM reviewed, placed on chart, pt has a copy.
[phone]
D/C plan: home with [facility] and family support.
--- NOTE | 2025-02-08 16:02 | W.DS.TRANS ---
Addendum entered and electronically signed by DIGNA Muniz 02/08/25 16:04:
dictated #[id number]
Original Note:
DC Summary - Matrix Inspector
-
Discharge Instructions:
Sleep Apnea Risk Intermediate
Discharge Diagnosis/Procedures Robotic right colectomy with intracorporeal
isoperistaltic anastomosis
Diet Low Residue
Activity No strenuous activity
Additional Activity No lifting over 10lbs (gallon of milk)
Driving Restrictions No driving for 1 week
Bathing Restrictions OK to Shower
Wound Care Allow glue to naturally fall off. Do not pick at
incisions.
Instructions: Low-fiber diet
Stand-Alone Forms:
Changes to Home Medications: No
Discharge Medications:
DC Medications w/original date entered in [place]
CoQ-10 200 mg PO DAILY 09/27/24
Oyster Shell Calcium 500 mg PO DAILY 09/27/24
Vitamin D3 2,000 units PO DAILY 09/27/24
aspirin 81 mg capsule 81 mg PO DAILY 09/27/24
atorvastatin 20 mg tablet 20 mg PO DAILY 09/27/24
enalapril maleate 10 mg PO DAILY 09/27/24
gabapentin 300 mg tablet 300 mg PO BID 09/27/24
galantamine 8 mg tablet 8 mg PO BID 09/27/24
pantoprazole 40 mg PO DAILY 09/27/24
tramadol 50 mg tablet 25 - 50 mg (0.5 - 1 x 50 mg) PO Q6HPRN PRN severe pain/breakthrough pain #8 tabs 02/08/25
Home Medication Changes
Pending Results: No
== END 2025-02-08 12:34 | disposition home health service (06) | DRG 330 ==
LOC: 2 SOUTH 06:01
PROVIDERS: Physician Assistant; ADMITTING PHYSICIAN Surgery; FAMILY PHYSICIAN Family Medicine
PROC: 8E0W4CZ Robotic Assisted Procedure of Trunk Region, Percutaneous Endoscopic Approach (ICD-10-PCS; 2025-02-04)
PROC: 0FB14ZZ Excision of Right Lobe Liver, Percutaneous Endoscopic Approach (ICD-10-PCS; 2025-02-04)
PROC: 0DTF4ZZ Resection of Right Large Intestine, Percutaneous Endoscopic Approach (ICD-10-PCS; 2025-02-04)
DX: C18.0 Malignant neoplasm of cecum (principal); C78.7 Secondary malignant neoplasm of liver and intrahepatic bile duct; I10 Essential (primary) hypertension; I25.10 Atherosclerotic heart disease of native coronary artery without angina pectoris; F03.90 Unspecified dementia, unspecified severity, without behavioral disturbance, psychotic disturbance, mood disturbance, and anxiety; K21.9 Gastro-esophageal reflux disease without esophagitis; E78.5 Hyperlipidemia, unspecified; D50.9 Iron deficiency anemia, unspecified; Z79.899 Other long term (current) drug therapy
CPT/HCPCS: 36415; 80048; 80053; 82378; 83036; 85025; 85027; 85610; 85730; 86803; 86850; 86900; 86901; 88307; 88309; 88331; 93005; 97162; 97166